=== PATIENT | female | born 1960 | race Caucasian/White ===

== ENCOUNTER → 2018-01-31 | Outpatient (CLI) | payer BC ==
[~2018-01-31] MED LIST: MULTIVITAMIN1 EAC2 PO; TYLENOL REGULA325 MG PO; VALIUM2 MG PO; VITAMIN D2000 UNI1 PO
== END | disposition home or self-care (01) ==
LOC: PICC 06:59
DX: A69.20 Lyme disease, unspecified (principal)
CPT/HCPCS: 76937